=== PATIENT | male | born 1965 | race Caucasian/White ===

== ENCOUNTER 2017-04-17 14:03 | Emergency (ER) | payer MEDICAID ==
[2017-04-17 14:21] VITALS: TEMP 98.6
--- NOTE | 2017-04-17 15:41 | EDPHY ---
H & P Time Seen by Provider: 04/17/17 14:23 HPI/ROS: CHIEF COMPLAINT: Left wrist pain HISTORY OF PRESENT ILLNESS: 52-year-old male presents to the emergency department with pain in his left wrist. The patient states yesterday he "jammed " his left wrist. He has had ongoing pain in his left wrist for the last at least 20 years. He has pain with range of motion. He denies numbness or tingling in his fingers. He is right-hand dominant. ROS: Denies laceration or abrasion. Denies symptoms in his left elbow or shoulder. Past Medical/Surgical History: Chronic left wrist pain Social History: Works in construction Smoking Status: Current every day smoker Physical Exam: On examination the patient has some mild swelling over the dorsal aspect of the left wrist especially over the distal radius and into the anatomic snuffbox. Mild pain with palpation of the distal radius as well as the anatomic snuffbox. He has full range of motion of his left wrist. No abrasion or puncture wound. Normal sensation to light touch with normal 2 point discrimination. Nontender to palpate in the left elbow or left shoulder. Strong radial pulse at the left wrist. Constitutional: Initial Vital Signs Temperature (C) 37.0 C 04/17/17 14:18 Heart Rate 90 04/17/17 14:18 Respiratory Rate 18 04/17/17 14:18 Blood Pressure 149/90 H 04/17/17 14:18 O2 Sat (%) 97 04/17/17 14:18 O2 Delivery Mode Room Air Allergies/Adverse Reactions: No Known Allergies Allergy (Unverified 04/17/17 14:17) Home Medications: Medication Instructions Recorded Aspirin 81mg (*) 04/17/17 Atorvastatin Calcium 04/17/17 Glipizide 04/17/17 Levemir 04/17/17 Metformin 1000 mg 04/17/17 MDM/Departure - MDM Imaging: Discussed imaging studies w/ network security architect Radiologist, I viewed and interpreted images myself Procedures: Patient was placed in a Velcro thumb spica splint and examined post application in good placement with normal RN ENTEROSTOMAL. ED Course/Re-evaluation: 52-year-old male presents to the emergency department with left wrist pain. X- rays reveal a hole degenerative changes as well as old scaphoid fracture. The patient was placed in Velcro thumb spica splint and given orthopedic referral. - Depart Disposition: Home, Routine, Self-Care Clinical Impression: Left wrist sprain Qualifiers: Encounter type: initial encounter Qualified Code(s): S63.502A - Unspecified sprain of left wrist, initial encounter Condition: Good Instructions: Wrist Sprain (ED) Additional Instructions: Splint for comfort and support. Ibuprofen 600mg every 8 hours for pain as directed. Referrals: Jerome Goyal MD [Medical Doctor] - 2-3 days without fail (Orthopedic surgeon on-call)
[2017-04-17 16:02] VITALS: BP 130/78; PULSE 78; RESP 16; O2SAT 98
== END 2017-04-17 16:03 | disposition home or self-care (01) ==
DX: S63.502A Unspecified sprain of left wrist, initial encounter (principal); F17.200 Nicotine dependence, unspecified, uncomplicated; Z79.82 Long term (current) use of aspirin; W23.1XXA Caught, crushed, jammed, or pinched between stationary objects, initial encounter
CPT/HCPCS: L3807

== ENCOUNTER 2018-07-22 20:04 | Emergency (ER) | payer MEDICAID | END 2018-07-22 22:57 | disposition home or self-care (01) ==